=== PATIENT | female | born 1980 | race Caucasian/White ===

== ENCOUNTER → 2019-10-22 | Outpatient (CLI) | payer OTHER ==
[2019-10-22 17:17] LABS: Source, Urine Clean Catch
[2019-10-22 18:40] LABS: Bilirubin, Urine Neg (Neg); Blood, Urine 1+ (Neg); Glucose Qualitative, Urine Neg (Neg); Ketones, Urine Neg (Neg); Leukocyte Esterase, Urine Neg (Neg); Nitrite, Urine Neg (Neg); Protein, Urine Neg (Neg); Urobilinogen, Urine NORM (Normal)
[2019-10-22 19:06] LABS: Color, Urine Yellow (P-Yellow)
[2019-10-22 19:07] LABS: Bacteria Few /hpf; Squamous Epithelial Cells Few /hpf (Few)
[2019-10-22 19:08] LABS: Appearance, Urine Clear (Clear)
== END | disposition home or self-care (01) ==
LOC: LAB SHORT 16:30 → LAB 16:30
PROVIDERS: Obstetrics & Gynecology
DX: R30.9 Painful micturition, unspecified (principal)
CPT/HCPCS: 81001

== ENCOUNTER → 2024-03-29 | Outpatient (CLI) | payer OTHER ==
[2024-04-05 09:08] LABS: HPV HIGH RISK BY TMA Not Detected; HPV SOURCE Cervical/Vag
== END ==
LOC: LAB 17:38 → LAB SHORT 17:38
PROVIDERS: Obstetrics & Gynecology
DX: R87.810 Cervical high risk human papillomavirus (HPV) DNA test positive (principal)
CPT/HCPCS: 87624; G0123

== ENCOUNTER → 2024-03-29 | Outpatient (CLI) | payer OTHER | LOC: LAB 08:17 → LAB SHORT 08:17 | DX: N93.8 Other specified abnormal uterine and vaginal bleeding (principal) | CPT/HCPCS: 88305 ==

== ENCOUNTER 2024-06-27 11:36 | Day surgery (SDC) | payer OTHER ==
[~2024-06-27] VITALS: Ht 177.8 cm; Wt 90.5 kg
[2024-06-27] VITALS (16 sets, daily range): BP systolic 118–146; BP diastolic 44–85
[~2024-06-27 11:36] MED LIST: Calcium Carbon500 MG PO; CeFAZolin Sodium 2,000 MG in NS 100 ML IV SCH; Lactated Ringer's 1,000 ML IV SCH; MAGCHL64ER; MELATONIN5 M1 PO; Phenazopyridine HCl 100 MG Tab PO ONE
[2024-06-27] MEDS ORDERED: propofoL 20 ML IV ONE (11:48)
[2024-06-27] MEDS ORDERED: Midazolam HCl 1MG / ML 2ML Vial ONE (11:48)
[2024-06-27] MEDS ORDERED: FentaNYL Citrate 50 MCG/ML 2 ML Injection ONE ×2 (11:48→15:38)
[2024-06-27] MEDS ORDERED: Bupivacaine 0.5% HCl 5 MG/ML 30MLVIAL ONE (13:30)
[2024-06-27] MEDS ORDERED: Rocuronium Bromide 10 MG/ML 5ML Injection IV ONE (13:41)
[2024-06-27] MEDS ORDERED: Ondansetron HCl 2 MG / ML 2ML Vial ONE (13:41)
[2024-06-27] MEDS ORDERED: Dexamethasone Sod Phos 10 MG/ML 1ML VIAL ONE (13:41)
[2024-06-27] MEDS ORDERED: Sugammadex Sodium 200 MG/2ML SDV (100 MG/ML) ONE ×2 (14:40→15:06)
[2024-06-27] MEDS ORDERED: Ketorolac Tromethamine 30mg Vial ONE (14:40)
[2024-06-27] MEDS ORDERED: HYDROmorphone HCl/Pf 1MG SYR ONE (15:15)
[2024-06-27] MEDS ORDERED: Naloxone HCl 0.4MG / ML 1ML Vial IV PRN (15:40)
[2024-06-27] MEDS ORDERED: Ondansetron HCl 2 MG / ML 2ML Vial IV PRN (15:40)
[2024-06-27] MEDS ORDERED: OxyCODONE HCL 5 MG TAB PO PRN ×2 (15:40)
[2024-06-27] MEDS ORDERED: Metoclopramide HCl 5MG / ML 2ML Vial IV PRN (15:40)
[2024-06-27] MEDS ORDERED: Simethicone 80 MG Chew PO PRN (15:45)
[2024-06-27] MEDS ORDERED: DiphenhydrAMINE HCL 25 MG Cap PO PRN (15:45)
[2024-06-27] MEDS ORDERED: HYDROmorphone HCl/Pf 1MG SYR IV PRN (15:45)
[2024-06-27] MEDS ORDERED: FLU VACC TS2024-25(6MOS UP)/PF 45 MCG/0.5 ML SYRINGE IM SCH (15:45)
[2024-06-27] MEDS ORDERED: Acetaminophen 500 MG Tab PO SCH (18:00)
[2024-06-27] MEDS ORDERED: Ketorolac Tromethamine 30mg Vial IV SCH (18:00)
--- NOTE | 2024-06-27 18:25 | NUR ---
SHIFT SUMMARY PT IS POD#0 FROM [facility] WITH DR. CONN. PAIN MANAGED WITH TYLENOL POST OP. PT HAS BEEN OOB AND AMBULATED, SHE IS TOLERATING PO AND SHE HAS VOIDED. PT WISHES TO GO HOME. PT EDUCATED THAT SHE CAN DISCHARGE HOME WHEN POST-OP VS ARE COMPLETE. PT USES CALL LIGHT APPROPRIATELY.
--- NOTE | 2024-06-27 19:55 | NUR ---
THIS RN READ D/C INSTRUCTIONS TO PT WRITTEN PER DAY SHIFT WITH INSTRUCT OF DR CONN.PT ALERT AND ORIENTED,IV WAS DCD PER [employer] WITH CATH INTACT,PT TOLERATING PO,VOIDING,PAIN MANAGED,NO CONCERNS OF VAG BLEED.PT DISCHARED HOME WITH FAMILY.
[2024-06-28] MEDS ORDERED: Polyethylene Glycol 3350 17 gm PO SCH (09:00)
[2024-06-28] MEDS ORDERED: Enoxaparin 40 MG/0.4 ML SYR SC SCH (09:00)
[2024-06-28] MEDS ORDERED: Ibuprofen 400 MG Tab PO SCH (12:00)
== END 2024-06-27 19:55 | disposition home or self-care (01) ==
LOC: ORSCMMR 11:36 → ORD 12:00 → SURS 16:06 → ORSCMMR 19:55
PROVIDERS: Obstetrics & Gynecology
PROC: 0UT7FZZ Resection of Bilateral Fallopian Tubes, Via Natural or Artificial Opening With Percutaneous Endoscopic Assistance (ICD-10-PCS; principal; 2024-06-27 12:00)
PROC: 0UT9FZZ Resection of Uterus, Via Natural or Artificial Opening With Percutaneous Endoscopic Assistance (ICD-10-PCS; principal; 2024-06-27 12:00)
DX: N93.9 Abnormal uterine and vaginal bleeding, unspecified (principal); N72 Inflammatory disease of cervix uteri; D25.9 Leiomyoma of uterus, unspecified; N94.6 Dysmenorrhea, unspecified; E28.2 Polycystic ovarian syndrome; J45.909 Unspecified asthma, uncomplicated; K21.9 Gastro-esophageal reflux disease without esophagitis; G62.9 Polyneuropathy, unspecified; Z79.899 Other long term (current) drug therapy
CPT/HCPCS: 86850; 86900; 86901; 88307; A9270; J0690; J1100; J1170; J1171; J1885; J2250; J2405; J2704; J3010; J7120

== ENCOUNTER → 2024-07-11 | Outpatient (CLI) | payer OTHER ==
[~2024-07-11] MED LIST changes: -CeFAZolin Sodium 2,000 MG in NS 100 ML IV SCH; -Lactated Ringer's 1,000 ML IV SCH; -Phenazopyridine HCl 100 MG Tab PO ONE
[2024-07-12 07:47] LABS: Bacterial Vaginosis PCR Negative (NEGATIVE); Candida Group, PCR NOT DETECTED (NOT DETECT); Candida glabrata-krusei, PCR NOT DETECTED (NOT DETECT)
== END ==
LOC: LAB SHORT 16:07 → LAB 16:07
PROVIDERS: Obstetrics & Gynecology
DX: N89.8 Other specified noninflammatory disorders of vagina (principal)
CPT/HCPCS: 87481; 87661; 87801